=== PATIENT | female | born 1995 | race Caucasian/White ===

== ENCOUNTER 2018-03-14 03:12 | Emergency (ER) | payer SELFPAY ==
[~2018-03-14] VITALS: Ht 165.1 cm; Wt 61.2 kg
[~2018-03-14 03:12] MED LIST: CIPRO500 MG PO; DEPO-PROVER150 MG/ML IM; NO HOME MEDS
[2018-03-14 05:06] LABS: BASOPHIL (%) 0.5 % (0-1); EOSINOPHIL (%) 0.8 % (0-5); EOSINOPHIL COUNT 0.1 K/uL (0-0.3); HEMATOCRIT 38.8 % (36.0-46.0); HEMOGLOBIN 13.1 G/DL (11.9-15.5); IMMATURE GRANULOCYTE (%) 0.3 % (0.0-0.7); LYMPHOCYTE (%) 28.6 % (15-42); LYMPHOCYTE COUNT 2.1 K/uL (1.0-2.8); MCH 28.9 PG (29.0-34.0); MCHC 33.8 G/DL (30.0-36.0); MCV 85.5 FL (83-99); MONOCYTE (%) 12.3 % (3-12); MONOCYTE COUNT 0.9 K/uL (0-0.8); NEUTROPHIL (%) 57.5 % (45-76); NEUTROPHIL COUNT 4.2 K/uL (1.8-6.4); PLATELET COUNT 232 K/uL (156-360); RBC DIS.WIDTH-CV 13.4 % (11.8-14.6); RBC DIS.WIDTH-SD 41.2 % (39-53); RED BLOOD COUNT 4.54 M/uL (3.80-5.20); WHITE BLOOD COUNT 7.3 K/uL (4.1-10.2)
[2018-03-14 05:17] LABS: ALBUMIN 4.4 g/dL (3.2-4.8); CHLORIDE 107 mEq/L (99-109); POTASSIUM 3.3 mEq/L (3.7-5.4); SODIUM 142 mEq/L (136-147)
[2018-03-14 05:20] LABS: GLUCOSE 86 mg/dL (70-99); TOTAL PROTEIN 7.2 g/dL (6.4-8.3)
[2018-03-14 05:21] LABS: TOTAL BILIRUBIN 0.4 mg/dL (0.0-1.0)
[2018-03-14 05:22] LABS: SERUM ETHYL ALCOHOL 222 mg/dL
[2018-03-14 05:23] LABS: ALKALINE PHOSPHATASE 102 IU/L (3-129); CREATININE 0.7 mg/dL (0.6-1.3); GFR ESTIMATE (CALCULATED) > 59 mL/min/
[2018-03-14 05:24] LABS: UREA NITROGEN (BUN) 4 mg/dL (9-23)
[2018-03-14 05:25] LABS: AST (GOT) 33 IU/L (2-34)
[2018-03-14 05:26] LABS: ALT (GPT) 44 IU/L (3-49)
[2018-03-14 05:27] LABS: LIPASE 9 U/L (1.0-51.0)
[2018-03-14 05:34] LABS: QUANTITATIVE HCG < 4.0 MIU/ML
[2018-03-14 05:39] LABS: APPEARANCE CLEAR ((CLEAR)); BILIRUBIN NEGATIVE; BLOOD NEGATIVE; COLOR STRAW ((YELLOW)); GLUCOSE (STRIP) NEGATIVE; KETONES NEGATIVE; LEUKOCYTES NEGATIVE; NITRITE NEGATIVE; PROTEIN (STRIP) 30; SPECIFIC GRAVITY 1.003 (1.000-1.030); UCUL ADDED? NO; UROBILINOGEN 0.2 MG/DL (0.2-1.0)
[2018-03-14] MEDS ORDERED: BENTYL10 MG PO (06:24)
[2018-03-14] MEDS ORDERED: PROTONIX20 MG PO (06:24)
[2018-03-14 06:29] VITALS: BP 103/76
== END 2018-03-14 06:30 | disposition home or self-care (01) ==
LOC: EME 03:12
PROVIDERS: Emergency Medicine
DX: R10.84 Generalized abdominal pain (principal); F10.10 Alcohol abuse, uncomplicated; R11.0 Nausea; Y90.7 Blood alcohol level of 200-239 mg/100 ml; F17.200 Nicotine dependence, unspecified, uncomplicated
CPT/HCPCS: 80053; 81003; 83690; 84702; 85025; 99281; 99284; G0480